=== PATIENT | male | born 1970 | race Caucasian/White ===

== ENCOUNTER 2017-09-01 14:44 | Emergency (ER) | payer BC ==
--- NOTE | 2017-09-01 15:19 | ED Physician Documentation ---
Abdominal Pain - HISTORIAN Historian: patient, spouse - HPI Stated Complaint: N/V/D Chief Complaint: Abdominal Pain Additonal Information: feeling well ate tenderloin tater tots etc 1130 then 1230 abd pain nausea emesis diarrhea several times. rec zofran per ems felt some better Onset: hours (asstateed above 1230) Duration: constant, waxing, waning Timing: better Context: bad food. denies: out of country travel, recent trauma Severity: moderate Quality: pain, aching, sharp Associated Symptoms: nausea, vomiting, diarrhea Relieved by: other (zofran plus iv fluids per ems) - ROS CONST: other (cough past 2-3 weeks) GI/: denies: constipation, problems urinating CVS/RESP: none EYES/ENT: none MS/SKIN/LYMPH: none NEURO/PSYCH: none - SOCIAL HX Smoking History: greater than 1 pack/day Alcohol Use: occasionally Drug Use: none - FAMILY HX Family History: no significant history - PAST HX Past History: none, other (htn RLS) Ischemic Bowel Risk Factors: none Surgeries/Procedures: none Home Medications: Ambulatory Orders Medication Instructions Recorded Carbidopa/Levodopa [Carbidopa-Levo 1 each PO HS 09/01/17 25-100 mg Odt] Lisinopril [Zestril] 10 mg PO DAILY 09/01/17 Allergies/Adverse Reactions: Allergies Allergy/AdvReac Type Severity Reaction Status Date / Time No Known Allergies Allergy Unverified 09/01/17 14:59 - VITAL SIGNS Vital Signs: Vital Signs Temp Pulse Resp BP Pulse Ox 97.1 F L 78 18 117/79 99 09/01/17 14:45 09/01/17 14:45 09/01/17 14:45 09/01/17 14:45 09/01/17 14:45 - REVIEWED ASSESSMENTS Nursing Assessment Reviewed: Yes Vitals Reviewed: Yes ED Results Lab/Radiology - Lab Results Lab Results: Lab Results 09/01/17 09/01/17 09/01/17 15:00 15:00 15:00 WBC 12.80 K/ul H K/ul (4.00-12.00) RBC 6.29 M/ul H M/ul (3.90-5.20) Hgb 18.9 g/dL H g/dL (12.0-18.0) Hct 55.9 % H % (37.0-53.0) MCV 89.0 fl fl (80.0-100.0) MCH 30.0 pg pg (28.0-34.0) MCHC 33.7 g/dL g/dL (30.0-36.0) RDW 12.5 % % (11.3-14.3) Plt Count 196 K/mm3 K/mm3 (130-400) Neut % (Auto) 83.0 % H % (39.0-79.0) Lymph % (Auto) 7.0 % L % (16.0-50.0) [place] % (Auto) 7.0 % % (0.0-11.0) Eos % (Auto) 1.0 % % (0.0-6.8) Baso % (Auto) 1.0 (0.0-1.5) Band Neutrophils % 1 % % (0-12) Plt Morphology Comment Normal (NORMAL) RBC Morph Comment Normal (NORMAL) Sodium 140 mmol/L mmol/L (136-145) Potassium 4.0 mmol/L mmol/L (3.5-5.1) Chloride 97 mmol/L L mmol/L (98-107) Carbon Dioxide 31 mmol/L H mmol/L (22-30) BUN 17 mg/dL mg/dL (9-20) Creatinine 1.10 mg/dL mg/dL (0.66-1.25) Estimated Creat Clear 118 Est GFR ( Amer) > 60 (60 - ) Est GFR (Non-Af Amer) > 60 (60 - ) Glucose 132 mg/dL H mg/dL (74-106) Calcium 10.5 mg/dL H mg/dL (8.4-10.2) Total Bilirubin 0.3 mg/dL mg/dL (0.2-1.3) AST 23 U/L U/L (15-46) ALT 45 U/L U/L (13-69) Alkaline Phosphatase 68 U/L U/L (38-126) Total Protein 8.1 g/dL g/dL (6.3-8.2) Albumin 4.7 g/dL g/dL (3.5-5.0) Lipase 84 U/L U/L (23-300) - Orders Orders: ED Orders Category Date Time Status CBC/PLATELET/DIFF Routine Lab 09/01/17 15:00 Completed CMP Routine Lab 09/01/17 15:00 Completed LIPASE Stat Lab 09/01/17 15:00 Completed Abdominal Pain Physical Exam - Physical Exam General Appearance: mild distress EENT: eye inspection normal NECK: normal inspection, thyroid normal, supple RESPIRATORY: no resp distress, chest non-tender, breath sounds normal, rhonchi CVS: reg rate & rhythm, heart sounds normal. No: tachycardia ABDOMEN: soft, tenderness (mild and generalized tacho tayler umbilical area) SKIN: warm/dry, normal color. No: cyanosis, diaphoresis, jaundice, mottled EXTREMITIES: non-tender, normal range of motion NEURO: oriented X3, motor nml, sensation nml, mood/affect nml Vital Signs: Vital Signs Temp Pulse Resp BP Pulse Ox 97.1 F L 78 18 117/79 99 09/01/17 14:45 09/01/17 14:45 09/01/17 14:45 09/01/17 14:45 09/01/17 14:45 Discharge Clincal Impression: food poisioning Referrals: Pravin Loza [Primary Care Provider] - 2 Days Comments: home f/u w/pcp re polycythemia and bld sugar. also rec donate blood to [facility] Condition: Good Disposition: 01 HOME, SELF-CARE Decision to Admit: NO Decision Time: 16:59
[2017-09-01 15:38] LABS: eGFR (African) > 60; eGFR (Non-African) > 60
[2017-09-01 17:27] VITALS: BP 118/64
== END 2017-09-01 17:24 | disposition home or self-care (01) ==
LOC: ED 14:44
DX: T62.91XA Toxic effect of unspecified noxious substance eaten as food, accidental (unintentional), initial encounter (principal); X58.XXXA Exposure to other specified factors, initial encounter; Y93.9 Activity, unspecified; Y99.9 Unspecified external cause status
CPT/HCPCS: 36415; 80053; 83690; 85025; 99283